=== PATIENT | male | born 1950 | race Caucasian/White ===

== ENCOUNTER 2017-08-08 10:46 | Emergency (ER) | payer MEDICAID ==
[2017-08-08] MEDS ORDERED: Ketorolac 30 MG/ML SDV IM ONE (11:30)
[2017-08-08] MEDS ORDERED: HYDROmorphone 1 MG/ML Syringe IM ONE (11:31)
--- NOTE | 2017-08-08 11:37 | EDM.PDOC ---
ED HPI GENERAL MEDICAL PROBLEM - General Chief Complaint: General Stated Complaint: PAIN IN L BACKSIDE Time Seen by Provider: 08/08/17 11:15 Source of Information: Reports: Patient, Family History Limitations: Reports: No Limitations - History of Present Illness INITIAL COMMENTS - FREE TEXT/NARRATIVE: Juan Manuel presents today with complaint of pain to rectum. 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 He is scheduled with Dr. Johnston this coming Thursday for surgery. He has been taking acetaminophen and ibuprofen for pain. Last Ibuprofen taken yesterday at 2100. He denies fever, chills, nausea, vomiting or other complaints. Improves with: Reports: Rest Worsens with: Reports: Movement - Related Data Allergies Allergy/AdvReac Type Severity Reaction Status Date / Time No Known Allergies Allergy Verified 01/07/16 07:43 Home Meds: Home Meds Citalopram Hydrobromide [Celexa] 10 mg PO BEDTIME 06/26/15 [History] risperiDONE [Risperdal] 3 mg PO BEDTIME 06/26/15 [History] diphenhydrAMINE [Benadryl] 25 mg PO BEDTIME 01/07/16 [History] Past Medical History HEENT History: Reports: Allergic Rhinitis, Retinal Detachment Genitourinary History: Reports: Renal Calculus Neurological History: Reports: Concussion, Head Trauma Psychiatric History: Reports: Anxiety, Depression Oncologic (Cancer) History: Reports: Basal Cell Carcinoma, Squamous Cell Carcinoma Dermatologic History: Reports: Other (See Below) Other Dermatologic History: skin CA ears - Infectious Disease History Infectious Disease History: Reports: Chicken Pox, Mumps - Past Surgical History HEENT Surgical History: Reports: Detached Retina GI Surgical History: Reports: None Male Surgical History: Reports: Kidney Stone Extraction, Lithotripsy (ESWL), Other (See Below) Dermatological Surgical History: Reports: None, Skin Biopsy Social & Family History - Family History Family Medical History: Noncontributory - Tobacco Use Smoking Status *Q: Current Every Day Smoker Years of Tobacco use: 45 Packs/Tins Daily: 0.5 Used Tobacco, but Quit: No Second Hand Smoke Exposure: Yes - Recreational Drug Use Recreational Drug Use: No ED ROS GENERAL - Review of Systems Review Of Systems: See Below Constitutional: Denies: Fever, Chills, Malaise, Weakness HEENT: Reports: No Symptoms Respiratory: Reports: Cough, Other (He reports chronic cough due to cigarette use of 1/2 ppd. ). Denies: Shortness of Breath, Wheezing, Pleuritic Chest Pain , Sputum, Hemoptysis Cardiovascular: Denies: Chest Pain, Dyspnea on Exertion, Edema, Lightheadedness , Palpitations, Syncope Endocrine: Reports: No Symptoms GI/Abdominal: Reports: Other (Rectal fistula, painful with sitting or ambulation. ). Denies: Abdominal Pain, Black Stool, Bloody Stool, Constipation , Diarrhea, Nausea, Vomiting : Denies: Dysuria, Flank Pain, Frequency, Urgency, Urinary Retention Musculoskeletal: Reports: No Symptoms Skin: Denies: Rash, Erythema Neurological: Denies: Dizziness, Headache, Numbness, Tingling, Weakness Psychiatric: Reports: No Symptoms Hematologic/Lymphatic: Reports: No Symptoms Immunologic: Reports: No Symptoms ED EXAM, GENERAL - Physical Exam Exam: See Below Exam Limited By: No Limitations General Appearance: Alert, WD/WN, Mild Distress Eye Exam: Bilateral Eye: EOMI, Normal Inspection Ears: Normal External Exam, Normal Canal, Hearing Grossly Normal, Normal TMs Ear Exam: Bilateral Ear: Auricle Normal, Canal Normal, TM normal Nose: Normal Inspection, Normal Mucosa, No Blood Throat/Mouth: Normal Inspection, Normal Lips, Normal Oropharynx, Normal Voice, No Airway Compromise Head: Atraumatic, Normocephalic Neck: Normal Inspection, Supple, Non-Tender, Full Range of Motion. No: Lymphadenopathy (R), Lymphadenopathy (L) Respiratory/Chest: No Respiratory Distress, Lungs Clear, Normal Breath Sounds, No Accessory Muscle Use, Chest Non-Tender Cardiovascular: Normal Peripheral Pulses, Regular Rate, Rhythm, No Edema, No Murmur, No Rub Peripheral Pulses: 2+: Radial (L), Radial (R), Dorsalis Pedis (L), Dorsalis Pedis (R) GI/Abdominal: Normal Bowel Sounds, Soft, Non-Tender, No Distention, No Mass, Other (Rectal tenderness, fistula toward left buttock. No erythema, fluctuance noted. ) Rectal (Males) Exam: Tenderness, Other (Fistula toward left buttock, tender to palpation. ) Back Exam: Normal Inspection, Full Range of Motion. No: CVA Tenderness (R), CVA Tenderness (L) Extremities: Normal Inspection, Normal Range of Motion, Non-Tender, No Pedal Edema, Normal Capillary Refill Neurological: Alert, Oriented, CN II-XII Intact, Normal Cognition, Normal Gait, No Motor/Sensory Deficits Psychiatric: Normal Affect, Normal Mood Skin Exam: Warm, Dry, Intact, Normal Color, No Rash Lymphatic: No Adenopathy Course - Vital Signs Last Recorded V/S: Last Vital Signs Temp 35.8 C 08/08/17 12:05 Pulse 83 08/08/17 12:05 Resp 16 08/08/17 12:05 BP 116/73 08/08/17 12:05 Pulse Ox 92 L 08/08/17 12:05 - Orders/Labs/Meds Meds: Medications Discontinued Medications Generic Name Dose Route Start Last Admin Trade Name Lesly PRN Reason Stop Dose Admin Hydromorphone HCl 1 mg 08/08/17 11:31 08/08/17 11:52 Dilaudid IM 08/08/17 11:32 1 mg ONETIME ONE Administration Ketorolac Tromethamine 30 mg 08/08/17 11:30 08/08/17 11:51 Toradol IM 08/08/17 11:31 30 mg ONETIME ONE Administration - Re-Assessments/Exams Free Text/Narrative Re-Assessment/Exam: 08/08/17 11:40 We will provide Juan Manuel pain medication of toradol and dilaudid IM. No signs of systemic infection at this time. He will follow up with Dr. Johnston as previously directed. He is in agreement with plan. Departure - Departure Time of Disposition: 12:02 Disposition: Home, Self-Care 01 Condition: Fair Clinical Impression: Rectal fistula, Pain, rectal - Discharge Information Instructions: Anal Fistula Referrals: Juan Manuel Escamilla MD [Primary Care Provider] - Forms: ED Department Discharge Additional Instructions: You were seen and treated for rectal pain due to rectal fistula. Keep you scheduled procedure this coming Thursday with Dr. Johnston. It is best for you to use metamucil (fiber) to assist with chronic management of pain and prevent constipation. Taking a sitz bath with hot water three times a day can also assist. Use of a barrier cream such as zinc oxide mixed with petroleum gel/vaseline to protect your skin. Use of Disposable pads/underwear will also assist with keeping your skin dry and healthy. Take ibuprofen and acetaminophen as needed for pain. for significant pain, take hydrocodone 1 tablet by mouth three times a day as needed for pain. - Assessment/Plan Assessment:: Rectal fistula Pain of rectum Plan: Fectal pain due to rectal fistula. Keep scheduled procedure this coming Thursday with Dr. Johnston. It is best for him to use metamucil (fiber) to assist with chronic management of pain and prevent constipation. Taking a sitz bath with hot water three times a day can also assist. Use of a barrier cream such as zinc oxide mixed with petroleum gel/vaseline to protect the skin. Use of Disposable pads/underwear will also assist with keeping skin dry and healthy. Take ibuprofen and acetaminophen as needed for pain. for significant pain, take hydrocodone 1 tablet by mouth three times a day as needed for pain. Instymed provided for hydrocodone provided.
[2017-08-08 11:55] VITALS: BP 116/73
== END 2017-08-08 12:06 | disposition home or self-care (01) ==
LOC: JP.ED 10:46
DX: K60.4 Rectal fistula (principal); F17.210 Nicotine dependence, cigarettes, uncomplicated; F32.9 Major depressive disorder, single episode, unspecified; Z85.828 Personal history of other malignant neoplasm of skin; Z98.890 Other specified postprocedural states
CPT/HCPCS: 96372; 99283; J1170; J1885

== ENCOUNTER 2017-08-14 06:13 | Day surgery (SDC) | payer MEDICAID ==
[2017-08-14] MEDS ORDERED: Bupivacaine 0.5%/EPINEPHrine 1:200,000 50 ML MDV ONE (06:30)
[2017-08-14] MEDS ORDERED: Isosulfan Blue 5 ML SDV ONE (06:38)
[2017-08-14] MEDS ORDERED: Sodium Chloride 0.9% 1,000 ML IV SCH (07:00)
[2017-08-14] MEDS ORDERED: ceFAZolin 2 GM in Premix Bag 1 BAG IV ONE (07:15)
[2017-08-14] MEDS ORDERED: ceFAZolin 2 GM in Sodium Chloride 0.9% 50 ML IV ONE (07:15)
[2017-08-14] MEDS ORDERED: fentaNYL 100 MCG/2 ML SDV ONE (07:26)
[2017-08-14] MEDS ORDERED: Midazolam 1 MG/ML 2 ML SDV ONE (07:26)
[2017-08-14] MEDS ORDERED: Propofol 200 MG/20 ML SDV ONE (07:28)
[2017-08-14] MEDS ORDERED: metroNIDAZOLE/Normal Saline 500 MG in Premix Bag 1 BAG IV ONE (07:30)
[2017-08-14] MEDS ORDERED: Rocuronium 50 MG/5 ML Vial ONE (08:23)
[2017-08-14] MEDS ORDERED: Neostigmine Methylsulfate 1 MG/ML 5 ML Syringe ONE (08:23)
[2017-08-14] MEDS ORDERED: Glycopyrrolate 0.2 MG/ML 5 ML MDV ONE (08:23)
[2017-08-14 09:56] VITALS: BP 100/64
--- NOTE | 2017-08-14 13:59 | OR ---
DATE OF PROCEDURE: 08/14/2017 PROCEDURE: Resection of anal chronic wound/abscess. PREOPERATIVE DIAGNOSIS: Rectal pain. POSTOPERATIVE DIAGNOSIS: Rectal pain. FINDINGS: This is a 66-year-old male, who has a history of multiple rectal repairs due to fistula. This was interrogated intraoperatively, and no fistula tract could be identified. Rather, a 1 cm deep x 8 mm epithelialized chronic wound was noted. RISKS: Risks, benefits, alternatives, and limitations, including but not limited to infection, bleeding, worsening of the wound, chronic wound, fistula formation, and other risks were explained to the patient, who wished to proceed. ANESTHESIA: General/local. PROCEDURE IN DETAIL: The patient was placed in the prone position. With the patient in prone position, this would be located at approximately the 7 o'clock position. This was interrogated first and was noted to not be communicative with the rectum. Rather, this most likely was an abscessed or nonhealing wound pocket. This was then debrided and the edges, along with what could be removed of the cavity, removed and sent to Pathology. After this, bleeding was controlled with electrocautery. The wound was then closed about 95% using 2-0 chromic sutures. A single piece of iodoform gauze was placed in the wound itself. Dressings were applied. The patient tolerated the procedure well. Tejas Johnston MD /[id number]
== END 2017-08-14 10:23 | disposition home or self-care (01) ==
LOC: JP.SDS 06:13
PROVIDERS: ATTEND Surgery
DX: K62.89 Other specified diseases of anus and rectum (principal); F41.9 Anxiety disorder, unspecified; F32.9 Major depressive disorder, single episode, unspecified; F17.210 Nicotine dependence, cigarettes, uncomplicated; Z98.890 Other specified postprocedural states
CPT/HCPCS: 45999; 88305; J0690; J2250; J2704; J2710; J3010; J7040; J7050; Q9968

== ENCOUNTER 2018-06-20 21:32 | Emergency (ER) | payer MEDICAID, MEDICARE ==
[2018-06-20] MEDS ORDERED: HYDROmorphone 1 MG/ML Syringe IVPUSH ONE (22:45)
[2018-06-20] MEDS ORDERED: Sodium Chloride 0.9% 10 ML Syringe FLUSH PRN (22:45)
[2018-06-20] MEDS ORDERED: Sodium Chloride 0.9% 1,000 ML IV ONE (22:45)
[2018-06-20] MEDS ORDERED: Ondansetron 4 MG/2 ML SDV IVPUSH ONE (22:45)
[2018-06-20] MEDS ORDERED: Iopamidol 755 Mg/ML 100 ML Bottle IV STA (23:37)
[2018-06-20] MEDS ORDERED: Sodium Chloride 0.9% 100 ML IV STA (23:38)
[2018-06-21] MEDS ORDERED: Sodium Chloride 0.9% 1,000 ML IV ONE (00:33)
[2018-06-21] MEDS ORDERED: cefTRIAXone 1 GM in Sodium Chloride 0.9% 50 ML IV ONE (01:28)
--- NOTE | 2018-06-21 01:51 | EDM.PDOC ---
ED HPI GENERAL MEDICAL PROBLEM - General Chief Complaint: Respiratory Problem Stated Complaint: RIGHT SIDE PAIN Time Seen by Provider: 06/20/18 22:45 Source of Information: Reports: Patient History Limitations: Reports: No Limitations - History of Present Illness INITIAL COMMENTS - FREE TEXT/NARRATIVE: Seen in clinic 2 days ago with dx pleurisy to rt lung. RX prednisone. Pain much worse such that having sob. Hurts to move. No fever. No recent illness Smoker right lung pain Pain Score (Numeric/FACES): 5 - Related Data Allergies Allergy/AdvReac Type Severity Reaction Status Date / Time No Known Allergies Allergy Verified 06/20/18 21:37 Home Meds: Home Meds Citalopram Hydrobromide [Celexa] 10 mg PO BEDTIME 06/26/15 [History] risperiDONE [Risperdal] 2 mg PO BEDTIME 06/26/15 [History] diphenhydrAMINE [Benadryl] 25 mg PO BEDTIME PRN 01/07/16 [History] Albuterol [IJD: Albuterol HFA] 2 puff IH QID 08/12/17 [History] Past Medical History HEENT History: Reports: Allergic Rhinitis, Retinal Detachment, Other (See Below) Other HEENT History: upper dentures Respiratory History: Reports: COPD Gastrointestinal History: Reports: Colon Polyp Genitourinary History: Reports: Renal Calculus Neurological History: Reports: Brain Injury, Concussion, Head Trauma Psychiatric History: Reports: Anxiety, Depression Oncologic (Cancer) History: Reports: Basal Cell Carcinoma, Squamous Cell Carcinoma Dermatologic History: Reports: Other (See Below) Other Dermatologic History: skin CA ears - Infectious Disease History Infectious Disease History: Reports: Chicken Pox, Measles, Mumps - Past Surgical History HEENT Surgical History: Reports: Detached Retina GI Surgical History: Reports: Colonoscopy, Polypectomy, Other (See Below) Other GI Surgeries/Procedures: anal fistula Male Surgical History: Reports: Kidney Stone Extraction, Lithotripsy (ESWL) Dermatological Surgical History: Reports: Skin Biopsy Social & Family History - Family History Family Medical History: Noncontributory Oncologic: Reports: Breast, Prostate - Tobacco Use Smoking Status *Q: Current Every Day Smoker Years of Tobacco use: 50 Packs/Tins Daily: 1 - Caffeine Use Caffeine Use: Reports: Coffee - Recreational Drug Use Recreational Drug Use: No ED ROS GENERAL - Review of Systems Review Of Systems: See Below Constitutional: Reports: No Symptoms HEENT: Reports: No Symptoms Respiratory: Reports: Shortness of Breath, Pleuritic Chest Pain Cardiovascular: Reports: Chest Pain Endocrine: Reports: No Symptoms GI/Abdominal: Reports: No Symptoms : Reports: No Symptoms ED EXAM, GENERAL - Physical Exam Exam: See Below Exam Limited By: No Limitations General Appearance: Alert, WD/WN, Moderate Distress (Seems in severe pain when moving any) Eye Exam: Bilateral Eye: Normal Inspection Ears: Normal External Exam Nose: Normal Inspection Throat/Mouth: Normal Oropharynx Head: Atraumatic Neck: Normal Inspection Respiratory/Chest: No Respiratory Distress, Lungs Clear, Normal Breath Sounds. No: Pleural Rub Cardiovascular: Regular Rate, Rhythm GI/Abdominal: Non-Tender Back Exam: Normal Inspection Extremities: Normal Inspection Neurological: Alert Psychiatric: Normal Affect Skin Exam: Warm, Dry Course - Vital Signs Last Recorded V/S: Last Vital Signs Temp 36.2 C 06/21/18 00:03 Pulse 70 06/21/18 01:58 Resp 18 06/21/18 01:58 BP 104/63 06/21/18 01:58 Pulse Ox 94 L 06/21/18 01:58 - Orders/Labs/Meds Orders: Active Orders 24 hr Category Date Time Status Ang Chest [CT] Stat Exams 06/20/18 23:30 Taken Chest 2V [CR] Urgent Exams 06/20/18 22:45 Taken Saline Lock Insert [OM.PC] Urgent Oth 06/20/18 22:45 Ordered Labs: Laboratory Tests 06/20/18 06/20/18 Range/Units 22:50 22:50 WBC 9.3 (4.5-11.0) K/uL RBC 4.42 (4.30-5.90) M/uL Hgb 14.1 (12.0-15.0) g/dL Hct 42.2 (40.0-54.0) % MCV 96 (80-98) fL MCH 32 H (27-31) pg MCHC 33 (32-36) % Plt Count 151 (150-400) K/uL Neut % (Auto) 62 (36-66) % Lymph % (Auto) 27 (24-44) % Gaines % (Auto) 10 H (2-6) % Eos % (Auto) 1 L (2-4) % Baso % (Auto) 0 (0-1) % Sodium 142 (140-148) mmol/L Potassium 3.8 (3.6-5.2) mmol/L Chloride 105 (100-108) mmol/L Carbon Dioxide 32 (21-32) mmol/L Anion Gap 5.3 (5.0-14.0) mmol/L BUN 21 H (7-18) mg/dL Creatinine 1.2 (0.8-1.3) mg/dL Est Cr Clr Drug Dosing 61.37 mL/min Estimated GFR (MDRD) > 60 (>60) Glucose 87 (74-106) mg/dL Calcium 9.4 (8.5-10.1) mg/dL Total Bilirubin 0.3 (0.2-1.0) mg/dL AST 18 (15-37) U/L ALT 20 (12-78) U/L Alkaline Phosphatase 74 (46-116) U/L Total Protein 6.3 L (6.4-8.2) g/dL Albumin 3.1 L (3.4-5.0) g/dL Globulin 3.2 (2.3-3.5) g/dL Albumin/Globulin Ratio 1.0 L (1.2-2.2) Meds: Medications Discontinued Medications Generic Name Dose Route Start Last Admin Trade Name Iamq PRN Reason Stop Dose Admin Hydromorphone HCl 1 mg 06/20/18 22:45 06/20/18 23:03 Dilaudid IVPUSH 06/20/18 22:46 1 mg ONETIME ONE Administration Sodium Chloride 1,000 mls @ 999 mls/hr 06/20/18 22:45 06/20/18 22:59 Normal Saline IV 06/20/18 23:45 999 mls/hr .BOLUS ONE Administration Sodium Chloride 100 mls @ 4 mls/sec 06/20/18 23:38 06/20/18 23:47 Normal Saline IV 06/20/18 23:39 4 mls/sec ASDIRECTED STA Administration Sodium Chloride 1,000 mls @ 999 mls/hr 06/21/18 00:33 06/21/18 00:29 Normal Saline IV 06/21/18 01:33 999 mls/hr .BOLUS ONE Administration Ceftriaxone Sodium 1 gm/ 50 mls @ 100 mls/hr 06/21/18 01:28 06/21/18 01:42 Sodium Chloride IV 06/21/18 01:57 100 mls/hr ONETIME ONE Administration Iopamidol 100 ml 06/20/18 23:37 06/20/18 23:47 Isovue-370 (76%) IV 06/20/18 23:38 100 ml . DIRECTED STA Administration Ondansetron HCl 4 mg 06/20/18 22:45 06/20/18 23:01 Zofran IVPUSH 06/20/18 22:46 4 mg ONETIME ONE Administration Sodium Chloride 10 ml 06/20/18 22:45 06/20/18 23:00 Saline Flush FLUSH 10 ml ASDIRECTED PRN Administration Keep Vein Open - Radiology Interpretation Free Text/Narrative:: CXR faint increased markings in rt base. CT c/w RLL infiltrate and mucus plugging consistent with pneumonia. - Re-Assessments/Exams Free Text/Narrative Re-Assessment/Exam: 06/21/18 07:29 Gave iv Dilaudid and zofran. Rocephin 1 gm iv. Departure - Departure Time of Disposition: 01:44 Disposition: Home, Self-Care 01 Condition: Fair Clinical Impression: Pneumonia, Pleurisy - Discharge Information Instructions: Steps to Quit Smoking, [id number], Pleurisy, [id number], Community-Acquired Pneumonia, Adult, [id number] Referrals: Juan Manuel Escamilla MD [Primary Care Provider] - Forms: ED Department Discharge Additional Instructions: Take Augmentin 875 mg twice daily for 10 days. For pain take [place] 5/325 (#20) 1 or 2 every 4-6 hours as needed. Maximum of 10 per day. May cause sedation that impairs driving and can be addicting if abused. Take Ibuprofen 400-800 mg 3 times daily to help with inflammation. This can cause stomach upset and even ulcers so use with caution. You have emphysema (holes in your lungs from destroyed lung tissue) and chronic bronchitis from smoking. This would be a good time to quit. Plan to see your doctor in about 1 week. Return to the ER at any time. - My Orders Last 24 Hours: My Active Orders 06/20/18 22:45 Chest 2V [CR] Urgent Saline Lock Insert [OM.PC] Urgent 06/20/18 23:30 Ang Chest [CT] Stat - Assessment/Plan Last 24 Hours: My Active Orders 06/20/18 22:45 Chest 2V [CR] Urgent Saline Lock Insert [OM.PC] Urgent 06/20/18 23:30 Ang Chest [CT] Stat
[2018-06-21 02:26] VITALS: BP 104/63
--- NOTE | 2018-06-21 09:19 | CR ---
Chest 2V HISTORY: pain COMPARISON: 02/24/2008 FINDINGS: Lungs appear hyperinflated with flattening of the diaphragm consistent with COPD. No acute infiltrate is identified. Cardiomediastinal silhouette is within normal limits. No vascular redistribution or p leural fluid can be seen. Bony structures and soft tissues are unremarkable. IMPRESSION: COPD. No acute chest abnormality or significant interval change is identified.
== END 2018-06-21 02:24 | disposition home or self-care (01) ==
LOC: JP.ED 21:32
DX: J18.9 Pneumonia, unspecified organism (principal); R09.1 Pleurisy; J44.9 Chronic obstructive pulmonary disease, unspecified; F17.210 Nicotine dependence, cigarettes, uncomplicated
CPT/HCPCS: 36415; 71046; 71275; 80053; 85025; 96361; 96374; 96375; 99284; J0696; J1170; J2405; J7030; J7050; Q9967

== ENCOUNTER 2019-09-04 16:46 | Emergency (ER) | payer MEDICARE ==
[2019-09-04 17:11] VITALS: BP 125/75; PULSE 86
[2019-09-04] MEDS ORDERED: Albuterol 0.083% 2.5 MG/3 ML Neb Soln NEB ONE (18:14)
[2019-09-04] MEDS ORDERED: Ketorolac 60 MG/2 ML SDV IM ONE (18:15)
--- NOTE | 2019-09-04 18:20 | EDM.PDOC ---
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 He hurts lot when he sits up and he is feeling sob. Onset: Other ( this was present anout 2 weeks ago and he was on predisone. In the last 2 days this has returned. ) Duration: Hour(s): Location: Reports: Chest Associated Symptoms: Reports: Chest Pain, Other (Pain with movement and when he takes a deep breath. ) Left Lower Chest Pain Score (Numeric/FACES): 2 - Related Data Allergies Allergy/AdvReac Type Severity Reaction Status Date / Time No Known Allergies Allergy Verified 09/04/19 17:12 Home Meds: Home Meds Citalopram Hydrobromide [Celexa] 10 mg PO BEDTIME 06/26/15 [History] risperiDONE [Risperdal] 1 mg PO BEDTIME 06/26/15 [History] diphenhydrAMINE [Benadryl] 25 mg PO BEDTIME PRN 01/07/16 [History] Albuterol [IJD: Albuterol HFA] 2 puff IH QID 08/12/17 [History] Ipratropium/Albuterol Sulfate [Iprat-Albut 0.5-3(2.5) MG/3 ML] 1 ampule INH ASDIRECTED 09/27/18 [History] Past Medical History HEENT History: Reports: Allergic Rhinitis, Retinal Detachment, Other (See Below) Other HEENT History: upper dentures Respiratory History: Reports: COPD Gastrointestinal History: Reports: Colon Polyp Genitourinary History: Reports: Renal Calculus Musculoskeletal History: Reports: Fracture Neurological History: Reports: Brain Injury, Concussion, Head Trauma Psychiatric History: Reports: Anxiety, Depression Oncologic (Cancer) History: Reports: Basal Cell Carcinoma, Squamous Cell Carcinoma Dermatologic History: Reports: Other (See Below) Other Dermatologic History: skin CA ears - Infectious Disease History Infectious Disease History: Reports: Chicken Pox, Measles, Mumps - Past Surgical History HEENT Surgical History: Reports: Detached Retina GI Surgical History: Reports: Colonoscopy, Polypectomy, Other (See Below) Other GI Surgeries/Procedures: anal fistula Male Surgical History: Reports: Kidney Stone Extraction, Lithotripsy (ES[facility]) Dermatological Surgical History: Reports: Skin Biopsy Social & Family History - Family History Family Medical History: Noncontributory Oncologic: Reports: Breast, Prostate - Tobacco Use Smoking Status *Q: Current Every Day Smoker Years of Tobacco use: 50 Packs/Tins Daily: 1 Used Tobacco, but Quit: No Second Hand Smoke Exposure: Yes - Caffeine Use Caffeine Use: Reports: Coffee, Soda - Recreational Drug Use Recreational Drug Use: No ED ROS GENERAL - Review of Systems Review Of Systems: See Below Constitutional: Reports: Fatigue HEENT: Reports: No Symptoms Respiratory: Reports: Shortness of Breath, Pleuritic Chest Pain, Sputum Cardiovascular: Reports: No Symptoms Endocrine: Reports: No Symptoms GI/Abdominal: Reports: No Symptoms : Reports: No Symptoms Musculoskeletal: Reports: Other (pt has mild tenderness in the left cva area. ) ED EXAM, GENERAL - Physical Exam Exam: See Below Free Text/Narrative:: Pt arrived with pain in the left cva area. This was present 2 weeks ago and this has now reoccurred. He is also feeling sob. He does not have a fever. Exam Limited By: No Limitations General Appearance: Alert, Anxious, Moderate Distress Ears: Normal TMs Nose: Normal Inspection Throat/Mouth: Normal Inspection Head: Atraumatic Neck: Normal Inspection Respiratory/Chest: No Respiratory Distress, Decreased Breath Sounds, Splinting, Other (pain in the left cva area. ) Cardiovascular: Regular Rate, Rhythm GI/Abdominal: Soft, Non-Tender (Male) Exam: Deferred Rectal (Males) Exam: Deferred Back Exam: Normal Inspection Extremities: Normal Inspection Neurological: Alert, Oriented, Normal Cognition Psychiatric: Anxious Course - Vital Signs Last Recorded V/S: Last Vital Signs Temp 36.3 C 09/04/19 17:18 Pulse 86 09/04/19 17:18 Resp 16 09/04/19 17:18 BP 125/75 09/04/19 17:18 Pulse Ox 91 L 09/04/19 17:18 - Orders/Labs/Meds Orders: Active Orders 24 hr Category Date Time Status RT Aerosol Therapy [RC] ASDIRECTED Care 09/04/19 18:14 Active Labs: Laboratory Tests 09/04/19 09/04/19 09/04/19 Range/Units 18:20 18:20 18:20 WBC 12.6 H (4.5-11.0) K/uL RBC 5.27 (4.30-5.90) M/uL Hgb 15.7 H (12.0-15.0) g/dL Hct 48.0 (40.0-54.0) % MCV 91 (80-98) fL MCH 30 (27-31) pg MCHC 33 (32-36) % Plt Count 189 (150-400) K/uL Neut % (Auto) 82 H (36-66) % Lymph % (Auto) 12 L (24-44) % [place] % (Auto) 6 (2-6) % Eos % (Auto) 0 L (2-4) % Baso % (Auto) 0 (0-1) % D-Dimer, Quantitative 461 H (0.0-400.0) ng/mL Sodium 138 L (140-148) mmol/L Potassium 4.3 (3.6-5.2) mmol/L Chloride 100 (100-108) mmol/L Carbon Dioxide 29 (21-32) mmol/L Anion Gap 13.3 (5.0-14.0) mmol/L BUN 23 H (7-18) mg/dL Creatinine 1.1 (0.8-1.3) mg/dL Est Cr Clr Drug Dosing 66.06 mL/min Estimated GFR (MDRD) > 60 (>60) Glucose 131 H (74-106) mg/dL Calcium 9.3 (8.5-10.1) mg/dL Total Bilirubin 0.3 (0.2-1.0) mg/dL AST 14 L (15-37) U/L ALT 19 (12-78) U/L Alkaline Phosphatase 90 (46-116) U/L C-Reactive Protein (0.0-0.3) mg/dL NT-Pro-B Natriuret Pep 71 (5-125) pg/mL Total Protein 7.1 (6.4-8.2) g/dL Albumin 3.4 (3.4-5.0) g/dL Globulin 3.7 H (2.3-3.5) g/dL Albumin/Globulin Ratio 0.9 L (1.2-2.2) 09/04/19 Range/Units 18:23 WBC (4.5-11.0) K/uL RBC (4.30-5.90) M/uL Hgb (12.0-15.0) g/dL Hct (40.0-54.0) % MCV (80-98) fL MCH (27-31) pg MCHC (32-36) % Plt Count (150-400) K/uL Neut % (Auto) (36-66) % Lymph % (Auto) (24-44) % [place] % (Auto) (2-6) % Eos % (Auto) (2-4) % Baso % (Auto) (0-1) % D-Dimer, Quantitative (0.0-400.0) ng/mL Sodium (140-148) mmol/L Potassium (3.6-5.2) mmol/L Chloride (100-108) mmol/L Carbon Dioxide (21-32) mmol/L Anion Gap (5.0-14.0) mmol/L BUN (7-18) mg/dL Creatinine (0.8-1.3) mg/dL Est Cr Clr Drug Dosing mL/min Estimated GFR (MDRD) (>60) Glucose (74-106) mg/dL Calcium (8.5-10.1) mg/dL Total Bilirubin (0.2-1.0) mg/dL AST (15-37) U/L ALT (12-78) U/L Alkaline Phosphatase (46-116) U/L C-Reactive Protein 0.38 H (0.0-0.3) mg/dL NT-Pro-B Natriuret Pep (5-125) pg/mL Total Protein (6.4-8.2) g/dL Albumin (3.4-5.0) g/dL Globulin (2.3-3.5) g/dL Albumin/Globulin Ratio (1.2-2.2) Meds: Medications Discontinued Medications Generic Name Dose Route Start Last Admin Trade Name Freq PRN Reason Stop Dose Admin Albuterol 2.5 mg 09/04/19 18:14 09/04/19 18:28 Proventil Neb Soln NEB 09/04/19 18:15 2.5 mg ONETIME ONE Administration Baclofen 10 mg 09/04/19 18:14 09/04/19 18:21 Lioresal PO 11/24/19 18:15 10 mg ONETIME ONE Administration Ketorolac Tromethamine 60 mg 09/04/19 18:15 09/04/19 18:25 Toradol IM 09/04/19 18:16 60 mg ONETIME ONE Administration - Re-Assessments/Exams Free Text/Narrative Re-Assessment/Exam: 09/04/19 19:01 chest xray is clear. Ddimer is borderline. His wbc is 12,000. He has a normal crp. He is very uncomfortable when he sits up and down. I feel that this does seem like muscle pain. He has no evidence of a infiltrate or fluid. Departure - Departure Time of Disposition: 19:02 Disposition: Home, Self-Care 01 Condition: Fair Clinical Impression: Chest wall discomfort - Discharge Information Referrals: Juan Manuel Escamilla MD [Primary Care Provider] - Forms: ED Department Discharge Care Plan Goals: fill albuterol inhaler and use tid, moist warm heat to the left cva area, baclofen 10 mg bid to relax muscles, torodol 10 mg qid as needed for pain, follow up with Dr Escamilla. in 5 days. - My Orders Last 24 Hours: My Active Orders 09/04/19 18:14 RT Aerosol Therapy [RC] ASDIRECTED - Assessment/Plan Last 24 Hours: My Active Orders 09/04/19 18:14 RT Aerosol Therapy [RC] ASDIRECTED
[2019-09-04] MEDS: Baclofen 10 MG Tab PO ONE ×2 (18:21→18:22)
--- NOTE | 2019-09-04 19:02 | CRLCR ---
INDICATION: Left-sided chest pain, shortness of breath TECHNIQUE: Chest 2 views. COMPARISON: CT scan chest 12/15/2018 FINDINGS: Cardiovascular and mediastinum: Heart size and vasculature are normal in caliber and appearance. Mediastinum is within normal limits. Lungs and pleural spaces: Inflation. Lungs are clear. No sign of infiltrate or mass. No sign of pleural effusion. No pneumothorax. Bones and soft tissues: Healed left 8th rib fracture. IMPRESSION: No acute pulmonary or cardiac abnormalities. Hyperinflation. Healed left 8th rib fracture. Dictated by Juan Manuel Weinstein MD @ Sep 04 2019 6:59PM Signed by Dr. Juan Manuel Weinstein @ Sep 04 2019 6:59PM
== END 2019-09-04 19:34 | disposition home or self-care (01) ==
LOC: JP.ED 16:46
DX: R07.89 Other chest pain (principal); J44.9 Chronic obstructive pulmonary disease, unspecified; F17.210 Nicotine dependence, cigarettes, uncomplicated; Z79.899 Other long term (current) drug therapy
CPT/HCPCS: 36415; 71046; 80053; 83880; 85025; 85379; 86140; 94640; 96372; 99285; A9270; J1885

== ENCOUNTER 2020-10-13 15:58 | Emergency (ER) | payer MEDICARE ==
[2020-10-13] MEDS ORDERED: Hydrocortisone Acetate 25 MG Supp RECTAL ONE (16:28)
[2020-10-13] MEDS ORDERED: Lidocaine 2% Jelly 10 ML Urojet MUCMEM ONE (16:29)
[2020-10-13 16:35] VITALS: BP 129/73; PULSE 77
--- NOTE | 2020-10-13 16:41 | EDM.PDOC ---
ED HPI GENERAL MEDICAL PROBLEM - General Chief Complaint: General Stated Complaint: LT SIDE PAIN Time Seen by Provider: 10/13/20 16:10 Source of Information: Reports: Patient History Limitations: Reports: No Limitations - History of Present Illness INITIAL COMMENTS - FREE TEXT/NARRATIVE: 69-year-old male with a history of rectal fissure in the past, presents with rectal pain for the past 12 hours. He is concerned that something similar is happening. He has had no significant issues with constipation, no fevers or chills, no bloody stools. It is uncomfortable enough today that he wanted it checked. Onset: Gradual (Started gradually about 12 hours ago but seems to be worsening) Worsens with: Reports: Other (Bowel movements are sore), Movement Rectal Pain Score (Numeric/FACES): 8 - Related Data Allergies Allergy/AdvReac Type Severity Reaction Status Date / Time No Known Allergies Allergy Verified 10/13/20 16:15 Home Meds: Home Meds Citalopram Hydrobromide [Celexa] 10 mg PO BEDTIME 06/26/15 [History] risperiDONE [Risperdal] 1 mg PO BEDTIME 06/26/15 [History] diphenhydrAMINE [Benadryl] 25 mg PO BEDTIME PRN 01/07/16 [History] Albuterol [IJD: Albuterol HFA] 2 puff IH QID 08/12/17 [History] Ipratropium/Albuterol Sulfate [Iprat-Albut 0.5-3(2.5) MG/3 ML] 1 ampule INH ASDIRECTED 09/27/18 [History] Past Medical History HEENT History: Reports: Allergic Rhinitis, Retinal Detachment, Other (See Below) Other HEENT History: upper dentures Respiratory History: Reports: COPD Gastrointestinal History: Reports: Colon Polyp Genitourinary History: Reports: Renal Calculus Musculoskeletal History: Reports: Fracture Neurological History: Reports: Brain Injury, Concussion, Head Trauma Psychiatric History: Reports: Anxiety, Depression Oncologic (Cancer) History: Reports: Basal Cell Carcinoma, Squamous Cell Carcinoma Dermatologic History: Reports: Other (See Below) Other Dermatologic History: skin CA ears - Infectious Disease History Infectious Disease History: Reports: Chicken Pox, Measles, Mumps - Past Surgical History HEENT Surgical History: Reports: Detached Retina GI Surgical History: Reports: Colonoscopy, Polypectomy, Other (See Below) Other GI Surgeries/Procedures: anal fistula Male Surgical History: Reports: Kidney Stone Extraction, Lithotripsy (ES[facility]) Other Male Surgeries/Procedures: fistulas x2- no surgery Neurological Surgical History: Reports: None Oncologic Surgical History: Reports: None Dermatological Surgical History: Reports: Skin Biopsy Social & Family History - Family History Family Medical History: No Pertinent Family History Oncologic: Reports: Breast, Prostate - Tobacco Use Tobacco Use Status *Q: Current Every Day Tobacco User Years of Tobacco use: 50 Packs/Tins Daily: 1 - Caffeine Use Caffeine Use: Reports: Coffee, Soda - Recreational Drug Use Recreational Drug Use: No ED ROS GENERAL - Review of Systems Review Of Systems: See Below Constitutional: Denies: Fever, Chills HEENT: Denies: Throat Pain Respiratory: Reports: Shortness of Breath (Chronic shortness of breath, COPD) GI/Abdominal: Reports: Other (Rectal pain for 12 hours). Denies: Abdominal Pain, Nausea, Vomiting : Reports: No Symptoms (No dysuria) Skin: Reports: Other (Bruises easily, several excoriations from scratching) Neurological: Reports: No Symptoms ED EXAM, GENERAL - Physical Exam Exam: See Below Exam Limited By: No Limitations General Appearance: Alert, No Apparent Distress Head: Atraumatic Respiratory/Chest: No Respiratory Distress GI/Abdominal: Soft, Non-Tender Rectal (Males) Exam: Normal Exam (External exam is normal, no thrombosed hemorrhoid or swelling seen. Digital exam reveals no impaction, he has soft brown stool but he is tender along the sides of the rectum circumferentially, no particular spot is sore) Course - Vital Signs Last Recorded V/S: Last Vital Signs Temp 97.6 F 10/13/20 16:15 Pulse 77 10/13/20 16:15 Resp 16 10/13/20 16:15 BP 129/73 10/13/20 16:15 Pulse Ox 93 L 10/13/20 16:15 - Orders/Labs/Meds Meds: Medications Discontinued Medications Generic Name Dose Route Start Last Admin Trade Name Freq PRN Reason Stop Dose Admin Hydrocortisone Acetate 25 mg 10/13/20 16:28 10/13/20 16:36 Anucort-Hc RECTAL 10/13/20 16:29 25 mg ONETIME ONE Administration Lidocaine HCl 10 ml 10/13/20 16:29 10/13/20 16:36 Xylocaine 2% Jelly MUCMEM 10/13/20 16:30 10 ml ONETIME ONE Administration - Re-Assessments/Exams Free Text/Narrative Re-Assessment/Exam: 10/13/20 16:39 Discussed his case with Dr. Strauss, who recommended topical hydrocortisone and lidocaine and he will see him early next week in clinic. An Anusol HC Suppository covered with lidocaine was placed for symptoms, and a prescription given for 10 more suppositories along with the leftover lidocaine from the [employer]. Patient is going to call the clinic on Thursday to make an appointment to see Dr. Strauss. He was also given 6 hydrocodone for extra pain control to take 1 every 4-6 hours, but was counseled on avoiding constipation with fluids stool softeners. He will return tomorrow if worsening despite treatment. Departure - Departure Time of Disposition: 16:52 Disposition: Home, Self-Care 01 Clinical Impression: Pain, rectal - Discharge Information Instructions: Anal Fissure, Adult Referrals: Juan Manuel Escamilla MD [Primary Care Provider] - Forms: ED Department Discharge Care Plan Goals: Use the suppository twice daily, and cover with numbing medicine for pain. You can also use the numbing medicine by itself every few hours if needed. A pain pill can be taken for extra pain control as prescribed, and call Dr. Strauss on Thursday to make an appointment for recheck if not improving satisfactorily. Return sooner if worsening despite treatment. Sepsis Event Note (ED) - Evaluation Sepsis Screening Result: No Definite Risk
== END 2020-10-13 16:52 | disposition home or self-care (01) ==
LOC: JP.ED 15:58
DX: K62.89 Other specified diseases of anus and rectum (principal); J44.9 Chronic obstructive pulmonary disease, unspecified; F32.9 Major depressive disorder, single episode, unspecified; F41.9 Anxiety disorder, unspecified; F17.210 Nicotine dependence, cigarettes, uncomplicated; Z79.899 Other long term (current) drug therapy
CPT/HCPCS: 99283; A9270

== ENCOUNTER 2024-10-21 06:43 | Day surgery (SDC) | payer MEDICARE ==
[2024-10-21] MEDS: Lactated Ringers 1,000 ML IV SCH (07:00)
[2024-10-21] MEDS ORDERED: fentaNYL 100 MCG/2 ML SDV ONE (07:13)
[2024-10-21] MEDS ORDERED: Midazolam 1 MG/ML 2 ML SDV ONE (07:13)
[2024-10-21] MEDS ORDERED: Propofol 200 MG/20 ML SDV ONE (07:13)
[2024-10-21] MEDS: metroNIDAZOLE/Normal Saline 500 MG in Premix Bag 1 BAG IV ONE (07:26)
[2024-10-21] MEDS: ceFAZolin 2 GM in Premix Bag 1 BAG IV ONE (08:26)
[2024-10-21] MEDS: Bupivacaine 0.5% 50 ML MDV ONE (08:45)
[2024-10-21] MEDS: Lidocaine 1% with EPINEPHrine 1:100,000 50 ML MDV ONE (08:45)
[2024-10-21 09:41] VITALS: BP 132/78; PULSE 71
== END 2024-10-21 10:06 | disposition home or self-care (01) ==
LOC: JP.SDS 06:43
PROVIDERS: ATTEND Surgery
DX: K61.1 Rectal abscess (principal); J44.9 Chronic obstructive pulmonary disease, unspecified; F17.200 Nicotine dependence, unspecified, uncomplicated
CPT/HCPCS: 00902; 46040; 87070; 87075; 87077; 87205; J0665; J0690; J1836; J2250; J2704; J3010; J7120